=== PATIENT | female | born 2000 | race Caucasian/White ===

== ENCOUNTER 2024-12-27 18:41 | Inpatient (IN) | payer BC ==
[~2024-12-27] VITALS: Ht 165.1 cm; Wt 48.0 kg
[2024-12-27] MEDS: SODIUM CHLORIDE 0.9% (SEPSIS BOLUS) IV ONE (20:25)
[2024-12-27] MEDS: CEFTRIAXONE 1GM/50ML 50 ML IV ONE (20:26)
[2024-12-27 20:33] LABS: BASOPHILS % 0.5 % (0.0-2.0); EOSINOPHILS % 0.1 % (0.0-5.0); HEMATOCRIT. 42.0 % (36.0-48.0); HEMOGLOBIN. 13.7 g/dL (12.0-16.0); LYMPHOCYTES % 4.7 % (20.0-50.0); MEAN PLATELET VOLUME 8.9 fl (7.4-10.4); MONOCYTES % 13.1 % (2.0-8.0); NEUTROPHILS % 81.6 % (40.0-76.0); PLATELET 223 x1000/uL (130-400); RED BLOOD CELL COUNT 4.82 mill/uL (4.2-5.4); RED CELL DISTRIBUTION WIDTH 13.1 % (11.6-14.6)
[2024-12-27 20:44] LABS: INR 1.1
[2024-12-27 20:49] LABS: CREATININE 0.8 mg/dL (0.6-1.0); UREA NITROGEN BLOOD 6 mg/dL (9-23)
[2024-12-27 20:51] LABS: ASPARTATE AMINOTRANSFERASE 27 IU/L (<34); BILIRUBIN DIRECT 0.3 mg/dL (<=3.0)
[2024-12-27 20:52] LABS: BILIRUBIN TOTAL 0.9 mg/dL (0.1-1.0); PROTEIN TOTAL 7.8 g/dL (6.0-8.3)
[2024-12-27 22:11] LABS: HCG SCREEN NEGATIVE
[2024-12-27] MEDS: ACETAMINOPHEN 500MG TABLET PO NR (22:29)
[2024-12-28 04:00] VITALS: BP 78/37; PULSE 72; RESP 20; TEMP 36.8; O2SAT 99
[2024-12-28] MEDS: SODIUM CHLORIDE 0.9% 1,000 ML IV SCH (04:40)
[2024-12-28 08:00] VITALS: BP 93/53; PULSE 90; RESP 18; TEMP 37.5; O2SAT 100
[2024-12-28] MEDS ORDERED: IPRATROPIUM/ALBUTEROL 0.5-3(2.5)MG/3ML NEB HHN PRN (10:00)
[2024-12-28] MEDS ORDERED: ONDANSETRON HCL 4MG/2ML INJ IV PRN (10:00)
[2024-12-28] MEDS ORDERED: DOCUSATE SODIUM 100MG CAPSULE PO PRN (10:00)
[2024-12-28] MEDS ORDERED: ACETAMINOPHEN 325MG TABLET PO PRN (10:00)
[2024-12-28] MEDS ORDERED: CLONIDINE 0.1MG TABLET PO PRN (10:00)
[2024-12-28 12:00] VITALS: BP 101/68; PULSE 90; RESP 17; TEMP 37.2; O2SAT 100
[2024-12-28 12:16] LABS: HEMATOCRIT. 35.7 % (36.0-48.0); HEMOGLOBIN. 11.8 g/dL (12.0-16.0); MEAN PLATELET VOLUME 8.8 fl (7.4-10.4); PLATELET 194 x1000/uL (130-400); RED BLOOD CELL COUNT 4.14 mill/uL (4.2-5.4); RED CELL DISTRIBUTION WIDTH 13.2 % (11.6-14.6)
[2024-12-28] MEDS: CETIRIZINE 10MG TABLET PO SCH (12:21)
[2024-12-28 14:45] LABS: BAND% 28.0 % (1.0-6.0); LYMPHOCYTES % MANUAL 16.0 % (20.0-60.0); MONOCYTES % MANUAL 22.0 % (2.0-8.0); NEUTROPHILS % MANUAL 34.0 % (45.0-75.0)
[2024-12-28 14:46] LABS: PLATELET ESTIMATE NORMAL
[2024-12-28 16:00] VITALS: BP_SYST 96; BP_SYST 99; BP_DIAS 54; BP_DIAS 57; BP_DIAS 66; PULSE 79; RESP 18; TEMP 37.1; O2SAT 97
[2024-12-28 18:23] LABS: CLARITY URINE CLEAR (CLEAR); COLOR URINE YELLOW (YELLOW); GLUCOSE URINE NEGATIVE (NEGATIVE); KETONES URINE NEGATIVE (NEGATIVE); LEUKOCYTE ESTERASE URINE NEGATIVE (NEGATIVE); NITRITE URINE NEGATIVE (NEGATIVE); OCCULT BLOOD URINE NEGATIVE (NEGATIVE); PH URINE 7.5 (4.5-8.0); PROTEIN URINE NEGATIVE (NEGATIVE); SPECIFIC GRAVITY URINE 1.006 (1.005-1.030); UROBILINOGEN URINE 0.2 E.U./dL (0.2-1.0)
[2024-12-28 18:44] LABS: *AMPHETAMINES SCREEN URINE NEGATIVE (NEGATIVE); *BARBITURATES SCREEN URINE NEGATIVE (NEGATIVE); *BENZODIAZEPINES SCREEN URINE NEGATIVE (NEGATIVE); *COCAINE SCREEN URINE NEGATIVE (NEGATIVE); CANNABINOID URINE SCREEN NEGATIVE (NEGATIVE); ECSTASY MDMA SCREEN URINE NEGATIVE (NEGATIVE); METHADONE URINE SCREEN NEGATIVE (NEGATIVE); OPIATES URINE SCREEN NEGATIVE (NEGATIVE); PHENCYCLIDINE URINE SCREEN NEGATIVE (NEGATIVE)
[2024-12-28 18:47] LABS: INFLUENZA TYPE A Presumptive Negative (Pres. Neg.); INFLUENZA TYPE B Presumptive Negative (Pres. Neg.)
[2024-12-28 20:00] VITALS: BP 107/70; PULSE 77; RESP 17; TEMP 37.1; O2SAT 98
[2024-12-28] MEDS: CEFTRIAXONE 1GM/50ML 50 ML IV SCH (21:21)
[2024-12-29] VITALS (7 sets, daily range): BP systolic 90–107; BP diastolic 59–73; PULSE 72–97; RESP 17–18; TEMP 36.5–37.2; O2SAT 96–100
[2024-12-29 08:21] LABS: HEMATOCRIT. 40.0 % (36.0-48.0); HEMOGLOBIN. 13.3 g/dL (12.0-16.0); MEAN PLATELET VOLUME 8.8 fl (7.4-10.4); PLATELET 195 x1000/uL (130-400); RED BLOOD CELL COUNT 4.65 mill/uL (4.2-5.4); RED CELL DISTRIBUTION WIDTH 13.0 % (11.6-14.6)
[2024-12-29 08:48] LABS: CREATININE 0.8 mg/dL (0.6-1.0)
[2024-12-29 08:49] LABS: UREA NITROGEN BLOOD 8 mg/dL (9-23)
[2024-12-29 09:53] LABS: HEPATITIS A AB IGM NEGATIVE (Negative)
[2024-12-29 09:54] LABS: HEPATITIS B CORE AB IGM NEGATIVE (Negative); HEPATITIS C AB NON REACTIVE (Neg) (Negative)
[2024-12-29 13:42] LABS: BAND% 9.0 % (1.0-6.0); LYMPHOCYTES % MANUAL 44.0 % (20.0-60.0); MONOCYTES % MANUAL 18.0 % (2.0-8.0); NEUTROPHILS % MANUAL 29.0 % (45.0-75.0); PLATELET ESTIMATE NORMAL
[2024-12-29] MEDS: ACETAMINOPHEN 325MG TABLET PO PRN (23:33)
[2024-12-30] VITALS: BP 96/68; PULSE 84; RESP 20; TEMP 36.3; O2SAT 100
[2024-12-30 08:00] VITALS: BP 100/74; PULSE 74; RESP 18; TEMP 36.4; O2SAT 96
[2024-12-30 12:00] VITALS: BP 103/75; PULSE 80; RESP 17; TEMP 36.4; O2SAT 97
[2024-12-30 16:00] VITALS: BP 106/69; PULSE 84; RESP 17; TEMP 36.4; O2SAT 98
[2024-12-30 20:00] VITALS: BP 101/70; PULSE 82; RESP 17; TEMP 36.6; O2SAT 99
[2024-12-30] MEDS: GUAIFENESIN 200MG/10ML SUGAR FREE UDC PO PRN (22:38)
[2024-12-31] VITALS: BP 104/68; PULSE 70; RESP 16; TEMP 36.3; O2SAT 98
[2024-12-31 04:00] VITALS: BP 96/56; PULSE 66; RESP 15; TEMP 36.3; O2SAT 99
[2024-12-31 08:00] VITALS: BP 106/69; PULSE 87; RESP 17; TEMP 36.4; O2SAT 100
[2024-12-31 12:00] VITALS: BP 104/71; PULSE 88; RESP 17; TEMP 36.4; O2SAT 100
[2024-12-31 15:19] VITALS: BP 104/71; PULSE 88; TEMP 97.6; O2SAT 100
== END 2024-12-31 20:25 | disposition home or self-care (01) | DRG 872 ==
LOC: ER 18:41 → 8WST 23:36 → EDBEDREQ 23:39 → EDBEDREQTM 23:39 → ENRESERV 23:49 → 6EST 12-30 02:15
PROVIDERS: ADMIT Internal Medicine; ATTEND Internal Medicine
DX: A41.9 Sepsis, unspecified organism (principal); E87.20 Acidosis, unspecified; N12 Tubulo-interstitial nephritis, not specified as acute or chronic; A04.9 Bacterial intestinal infection, unspecified; D72.821 Monocytosis (symptomatic); L50.9 Urticaria, unspecified; Z20.822 Contact with and (suspected) exposure to COVID-19; R13.10 Dysphagia, unspecified; R33.9 Retention of urine, unspecified; D64.9 Anemia, unspecified; D72.819 Decreased white blood cell count, unspecified; A08.4 Viral intestinal infection, unspecified; Z79.899 Other long term (current) drug therapy
CPT/HCPCS: 36415; 71045; 74176; 80048; 80076; 80305; 81003; 82962; 83605; 84145; 84703; 85025; 86705; 86709; 87070; 87340; 87426; 87430; 87804; 93005; 99291; A4606; J0696; J7030